=== PATIENT | female | born 1975 | race Caucasian/White ===

== ENCOUNTER 2022-07-18 21:40 | Emergency (ER) | payer OTHER ==
[~2022-07-18] VITALS: Ht 154.9 cm; Wt 103.0 kg
[2022-07-18 21:51] VITALS: BP 131/84
--- NOTE | 2022-07-18 22:23 | NUR ---
Patient discharged to home in stable condition. Written and verbal after care instructions given. Patient verbalizes understanding of instruction.
== END 2022-07-18 22:24 | disposition home or self-care (01) ==
LOC: ER 21:43
DX: S61.212A Laceration without foreign body of right middle finger without damage to nail, initial encounter (principal); X58.XXXA Exposure to other specified factors, initial encounter; Y93.89 Activity, other specified; Y92.89 Other specified places as the place of occurrence of the external cause; Y99.8 Other external cause status